=== PATIENT | male | born 1960 | race Caucasian/White ===

== ENCOUNTER 2020-12-04 06:30 | Day surgery (SDC) | payer BC, SELFPAY ==
[~2020-12-04] VITALS: Ht 175.3 cm; Wt 99.8 kg
[2020-12-04] MEDS ORDERED: DEXAMETHASONE SOD PHOSPHATE 4 MG/ML VIAL IVP ONE (08:21)
[2020-12-04] MEDS ORDERED: GLYCOPYRROLATE 0.2 MG/ML VIAL IJ ONE (08:21)
[2020-12-04] MEDS ORDERED: NS 500 ML IV.SOLN IV ONE (08:21)
[2020-12-04] MEDS ORDERED: SEVOFLURANE 15 MIN GAS INH ONE (08:21)
[2020-12-04] MEDS ORDERED: SUCCINYLCHOLINE CHLORIDE 20 MG/ML(QUELICIN) IVP ONE (08:21)
[2020-12-04] MEDS ORDERED: NS IRRIG SOLN 1000 ML IR ONE (08:21)
[2020-12-04] MEDS ORDERED: MIDAZOLAM HCL 5 MG/5 ML VIAL IVP ONE (08:21)
[2020-12-04] MEDS ORDERED: PROPOFOL 200MG/ 20ML VIAL (DIPRIVAN) IV ONE (08:21)
[2020-12-04] MEDS ORDERED: LIDOCAINE 1% 10 MG/ML, 20 ML MDV INJ ONE (08:21)
[2020-12-04] MEDS ORDERED: NEOSTIGMINE METHYLSULFATE 1 MG/ML, 10 ML VIAL IVP ONE (08:21)
[2020-12-04] MEDS ORDERED: LR 1,000 ML IV.SOLN IV ONE (08:21)
[2020-12-04] MEDS ORDERED: LIDOCAINE/EPI 1% 1:100000 20 ML VIAL INJ ONE (08:21)
[2020-12-04] MEDS ORDERED: fentaNYL CITRATE 250 MCG/5 ML AMP IV ONE (08:21)
[2020-12-04] MEDS ORDERED: ONDANSETRON HCL 4 MG/2 ML VIAL IVP ONE (08:21)
[2020-12-04] MEDS ORDERED: METOCLOPRAMIDE HCL 10 MG/2 ML VIAL IVP ONE (08:21)
[2020-12-04] MEDS ORDERED: ROCURONIUM BROMIDE 10 MG/ML (ZEMURON) IV ONE (08:21)
[2020-12-04] MEDS ORDERED: MEPERIDINE HCL/PF 25 MG/ML DISP.SYRIN IVP PRN (09:15)
[2020-12-04] MEDS ORDERED: OXYCODONE/ACETAMINOPHEN 5-325 TABLET PO ONE (09:15)
[2020-12-04] MEDS ORDERED: LR 1,000 ML IV SCH (09:15)
[2020-12-04] MEDS ORDERED: fentaNYL CITRATE/PF 100 MCG/2 ML AMP IVP PRN (09:15)
[2020-12-04] MEDS ORDERED: HYDROcodone/ACETAMIN 5-325 MG TAB (NORCO/ VICODIN) PO PRN (11:00)
[2020-12-04] MEDS ORDERED: OXYMETAZOLINE HCL 0.05% NASAL SPRAY NS PRN (11:00)
[2020-12-04] MEDS ORDERED: ONDANSETRON HCL 4 MG/2 ML VIAL IVP PRN (11:00)
[2020-12-04] MEDS ORDERED: ONDANSETRON 4 MG ODT TAB PO PRN (11:00)
[2020-12-04] MEDS ORDERED: fentaNYL CITRATE/PF 100 MCG/2 ML AMP ONE (11:22)
[2020-12-04] MEDS ORDERED: HYDROcodone/ACETAMIN 5-325 MG TAB (NORCO/ VICODIN) ONE (12:21)
[2020-12-04 14:14] VITALS: BP_SYST 110
== END 2020-12-04 13:40 | disposition home or self-care (01) ==
LOC: SMU 06:30 → SDS 06:30
PROVIDERS: ATTEND Otolaryngology
DX: J34.2 Deviated nasal septum (principal); G47.33 Obstructive sleep apnea (adult) (pediatric); Z99.89 Dependence on other enabling machines and devices; J34.3 Hypertrophy of nasal turbinates; Z79.899 Other long term (current) drug therapy; Z20.828 Contact with and (suspected) exposure to other viral communicable diseases
CPT/HCPCS: 30140; 30520; J0330; J1100; J2001; J2250; J2405; J2704; J2710; J2765; J3010 ×2; J3490; J7040; J7120; U0003

== ENCOUNTER 2023-06-08 16:15 | Emergency (ER) | payer BC ==
[~2023-06-08] VITALS: Ht 170.2 cm; Wt 97.5 kg
[2023-06-08 17:01] VITALS: BP_SYST 111; PULSE 88; RESP 18; TEMP 97.8; O2SAT 96
[2023-06-08] MEDS ORDERED: NABU-140 PO (18:00)
[2023-06-08 18:55] VITALS: BP_SYST 111; PULSE 88; RESP 18; TEMP 97.8; O2SAT 96
== END 2023-06-08 18:55 | disposition home or self-care (01) ==
LOC: SED 16:15
DX: M25.561 Pain in right knee (principal); Z91.048 Other nonmedicinal substance allergy status; Z79.899 Other long term (current) drug therapy
CPT/HCPCS: 99283; 73560; J7030